=== PATIENT | female | born 1995 | race African-American/Black ===

== ENCOUNTER 2021-04-29 03:12 | Emergency (ER) | payer OTHER ==
[~2021-04-29] VITALS: Ht 160 cm; Wt 61.2 kg
[2021-04-29 03:29] VITALS: BP 142/73
--- NOTE | 2021-04-29 04:39 | NUR ---
Patient discharged to home in stable condition. Written and verbal after care instructions given. Patient left without taking dc paper work.
== END 2021-04-29 04:41 | disposition home or self-care (01) ==
LOC: ER 03:19
DX: S91.116A Laceration without foreign body of unspecified lesser toe(s) without damage to nail, initial encounter (principal); Z98.890 Other specified postprocedural states; X58.XXXA Exposure to other specified factors, initial encounter; Y93.89 Activity, other specified; Y92.89 Other specified places as the place of occurrence of the external cause; Y99.8 Other external cause status